=== PATIENT | male | born 1945 | race Caucasian/White ===

== ENCOUNTER 2017-04-04 06:09 | Emergency (ER) | payer OTHER ==
[2017-04-04 06:21] VITALS: BP 143/75; PULSE 75; TEMP 98.3; BMI 25.0
--- NOTE | 2017-04-04 06:45 | PDOC ---
History of Present Illness - General Chief Complaint: Urinary Problem Stated Complaint: URINARY PROBLEM Time Seen by Provider: 04/04/17 06:27 History Source: Patient - History of Present Illness Travel History: No Initial Comments: 04/04/17 06:39 71 year old male with urinary retention due to blocked phimosis. patient reports that usual urination patient has to milk the penis to release urine prior to arrival patient was unable to void. last void at 1 am. denies abdominal pain, fever, NVD. patient has a history of blocked Phimosis, diabetes mellitus, hypertension Past History - Past Medical History Allergies/Adverse Reactions: Allergies Allergy/AdvReac Type Severity Reaction Status Date / Time No Known Allergies Allergy Verified 04/04/17 06:18 Home Medications: Ambulatory Orders Metformin HCl [Glucophage -] 500 mg PO BID 04/04/17 Diabetes: Yes - Suicide/Smoking/Psychosocial Hx Smoking History: Never smoked Have you smoked in the past 12 months: No Information on smoking cessation initiated: No Hx Alcohol Use: No Drug/Substance Use Hx: No Review of Systems - Review of Systems Able to Perform ROS?: Yes Is the patient limited Cymro proficient: No Constitutional: No: Symptoms Reported, See HPI, Chills, Diaphoresis, Fever, Loss of Appetite, Malaise, Night Sweats, Weakness, Weight Stable, Unintentional Wgt. Loss, Unexplained wgt Loss, Other : Yes: Other (urinary distention) *Physical Exam - Vital Signs Last Vital Signs Temp Pulse Resp BP Pulse Ox 98.3 F 75 20 143/75 97 04/04/17 06:19 04/04/17 06:19 04/04/17 06:19 04/04/17 06:19 04/04/17 06:19 - Physical Exam General Appearance: Yes: Appropriately Dressed Gastrointestinal/Abdominal: positive: Normal Bowel Sounds, Soft, Other (no suprapubic tenderness). negative: Tender Male Genitalia: positive: other (+ phimosis) Integumentary: positive: Normal Color, Dry, Warm Neurologic: positive: Fully Oriented, Alert, Normal Mood/Affect Progress Note - Progress Note Progress Note: A: urinary retention secondary to phimosis P: smegma cleaned. patient able to urinate without difficulty. patient will be referred to urology Medical Decision Making - Medical Decision Making 04/04/17 07:00 UA disgarded. contaminated with smegma. patient with no urinary symptoms. will repeat test with pmd 04/04/17 07:01 *DC/Admit/Observation/Transfer Diagnosis at time of Disposition: Phimosis, Urinary retention - Discharge Dispostion Disposition: HOME - Referrals Referrals: Bautista Quintana MD [Staff Physician] - - Patient Instructions Printed Discharge Instructions: DI for Phimosis Additional Instructions: please follow up with urology as soon as possible.
--- NOTE | 2017-04-04 06:49 | PDOC ---
*Physical Exam - Vital Signs Last Vital Signs Temp Pulse Resp BP Pulse Ox 98.3 F 75 20 143/75 97 04/04/17 06:19 04/04/17 06:19 04/04/17 06:19 04/04/17 06:19 04/04/17 06:19 Medical Decision Making - Medical Decision Making 04/04/17 06:47 agree with care from [facility] Ramiro *DC/Admit/Observation/Transfer Diagnosis at time of Disposition: Phimosis, Urinary retention
[2017-04-04 06:59] LABS: URINE APPEARANCE SLCLOUDY; URINE BILIRUBIN NEGATIVE (NEGATIVE); URINE BLOOD 1+ (NEGATIVE); URINE COLOR YELLOW; URINE GLUCOSE (UA) 3+ (NEGATIVE); URINE KETONE TRACE (NEGATIVE); URINE NITRITE NEGATIVE (NEGATIVE); URINE PROTEIN NEGATIVE (NEGATIVE); URINE UROBILINOGEN NEGATIVE mg/dL (0.2-1.0)
[2017-04-04 07:07] LABS: URINE MUCUS RARE; URINE RBC 25 /hpf (0-3); URINE WBC 19 /hpf (3-5)
[2017-04-04 10:42] LABS: URINE LEUK ESTERASE 1+ (NEGATIVE)
== END 2017-04-04 06:59 | disposition home or self-care (01) ==
LOC: JER 06:09
DX: N47.1 Phimosis (principal); E11.9 Type 2 diabetes mellitus without complications; Z79.84 Long term (current) use of oral hypoglycemic drugs
CPT/HCPCS: 81003; 81015; 99282-25

== ENCOUNTER 2017-10-26 07:30 | Observation (INO) | payer OTHER ==
[2017-10-26 07:46] VITALS: BMI 25.7
--- NOTE | 2017-10-26 07:47 | PDOC ---
History of Present Illness - General Chief Complaint: Urinary Problem Stated Complaint: DIFFICULTY URINATING Time Seen by Provider: 10/26/17 07:47 - History of Present Illness Initial Comments: 10/26/17 07:49 The patient denies chest pain, shortness of breath, headache and dizziness. Denies fever, chills, nausea, vomit, diarrhea and constipation. Denies dysuria, frequency, urgency and hematuria. Allergies: Past History - Past Medical History Allergies/Adverse Reactions: Allergies Allergy/AdvReac Type Severity Reaction Status Date / Time No Known Allergies Allergy Verified 10/26/17 07:39 Home Medications: Ambulatory Orders metFORMIN HCL [Glucophage -] 500 mg PO BID 04/04/17 COPD: No Diabetes: Yes (TYPE 2) - Suicide/Smoking/Psychosocial Hx Smoking History: Former smoker Have you smoked in the past 12 months: No Information on smoking cessation initiated: No Hx Alcohol Use: No Drug/Substance Use Hx: No Review of Systems - Review of Systems Comments:: 10/26/17 07:49 GENERAL/CONSTITUTIONAL: No fever or chills. No weakness. HEAD, EYES, EARS, NOSE AND THROAT: No change in vision. No ear pain or discharge. No sore throat. CARDIOVASCULAR: No chest pain or shortness of breath RESPIRATORY: No cough, wheezing, or hemoptysis. GASTROINTESTINAL: No nausea, vomiting, diarrhea or constipation. GENITOURINARY: No dysuria, frequency, or change in urination. MUSCULOSKELETAL: No joint or muscle swelling or pain. No neck or back pain. SKIN: No rash NEUROLOGIC: No headache, vertigo, loss of consciousness, or change in strength/ sensation. ENDOCRINE: No increased thirst. No abnormal weight change HEMATOLOGIC/LYMPHATIC: No anemia, easy bleeding, or history of blood clots. ALLERGIC/IMMUNOLOGIC: No hives or skin allergy. *Physical Exam - Vital Signs Last Vital Signs Temp Pulse Resp BP Pulse Ox 98.5 F 107 H 17 122/80 95 10/26/17 07:39 10/26/17 07:39 10/26/17 07:39 10/26/17 07:39 10/26/17 07:39 - Physical Exam Comments: 10/26/17 07:49 GENERAL: Awake, alert, and fully oriented, in no acute distress HEAD: No signs of trauma, normocephalic, atraumatic EYES: PERRLA, EOMI, sclera anicteric, conjunctiva clear ENT: Auricles normal inspection, hearing grossly normal, nares patent, oropharynx clear without exudates. Moist mucosa NECK: Normal ROM, supple, no lymphadenopathy, JVD, or masses LUNGS: No distress, speaks full sentences, clear to auscultation bilaterally HEART: Regular rate and rhythm, normal S1 and S2, no murmurs, rubs or gallops, peripheral pulses normal and equal bilaterally. ABDOMEN: Soft, nontender, normoactive bowel sounds. No guarding, no rebound. No masses EXTREMITIES: Normal inspection, Normal range of motion, no edema. No clubbing or cyanosis. NEUROLOGICAL: Cranial nerves II through XII grossly intact. Normal speech, normal gait, no focal sensorimotor deficits SKIN: Warm, Dry, normal turgor, no rashes or lesions noted. *DC/Admit/Observation/Transfer - Referrals - Patient Instructions Additional Instructions: Please return to the emergency department with any new or worsening symptoms or concerns. Please follow up with your primary care physician within 72 hours. - Post Discharge Activity
--- NOTE | 2017-10-26 07:49 | PDOC ---
History of Present Illness - General Chief Complaint: Urinary Problem Stated Complaint: DIFFICULTY URINATING Time Seen by Provider: 10/26/17 07:47 - History of Present Illness Initial Comments: 10/26/17 07:48 72 yo M with h/o NIDDM who p/w with decreased urination. Patient reports decreased urination x 3 days ( dribbling) with inability to urinate this AM ( 0400). Also reports penile redness, swelling, and inability to retract foreskin x 3 days. Increased urinary frequency within past 2-3 days Q 1 hour vs. Q3 hours. Patient states that when he attempts urination, his penis "baloons up. "Endorses chronic dysuria, and intermittent suprpapubic pain. Does not catherize for urine. Scheduled Urology apt. next week ( 10/28/17). Tylenol this AM. Denies F/C, N/V, CP, SOB, diarrhea, constipation, weakness, lightheadedness, sensory changes. PMHx: (04/04/17) ED encounter for urinary retetnion 2/2 phimosis. Denies h/o prostate issues. ROS: As noted above SHx: Denies Etoh, Tobacco use, IVDA. Denies h/o STI's. Past History - Past Medical History Allergies/Adverse Reactions: Allergies Allergy/AdvReac Type Severity Reaction Status Date / Time No Known Allergies Allergy Verified 10/26/17 07:39 Home Medications: Ambulatory Orders Acarbose [Precose -] 50 mg PO TID 10/26/17 Glimepiride 4 mg PO DAILY 10/26/17 Metformin HCl [Metformin HCl ER] 1,000 mg PO BID 10/26/17 Pravastatin Sodium 20 mg PO DAILY 10/26/17 Valsartan/Hydrochlorothiazide [Valsartan-Hctz 80-12.5 mg Tab] 1 each PO DAILY Lactobacillus Acidophilus [Bacid -] 1 each PO BID #10 capsule 10/27/17 Levofloxacin [Levaquin] 500 mg PO DAILY #5 tablet 10/27/17 Oxycodone HCl 5 mg PO Q4H PRN #20 tablet MDD 4 10/27/17 COPD: No Diabetes: Yes (TYPE 2) - Suicide/Smoking/Psychosocial Hx Smoking History: Former smoker Have you smoked in the past 12 months: No Information on smoking cessation initiated: No Hx Alcohol Use: No Drug/Substance Use Hx: No Review of Systems - Review of Systems Comments:: 10/26/17 07:48 GENERAL/CONSTITUTIONAL: No fever or chills. No weakness. HEAD, EYES, EARS, NOSE AND THROAT: No change in vision. No ear pain or discharge. No sore throat. CARDIOVASCULAR: No chest pain or shortness of breath RESPIRATORY: No cough, wheezing, or hemoptysis. GASTROINTESTINAL: No nausea, vomiting, diarrhea or constipation. GENITOURINARY:+ dysuria, frequency, and change in urination. MUSCULOSKELETAL: No joint or muscle swelling or pain. No neck or back pain. SKIN: No rash NEUROLOGIC: No headache, vertigo, loss of consciousness, or change in strength/ sensation. ENDOCRINE: No increased thirst. No abnormal weight change HEMATOLOGIC/LYMPHATIC: No anemia, easy bleeding, or history of blood clots. ALLERGIC/IMMUNOLOGIC: No hives or skin allergy. *Physical Exam - Vital Signs Last Vital Signs Temp Pulse Resp BP Pulse Ox 98.5 F 107 H 17 122/80 95 10/26/17 07:39 10/26/17 07:39 10/26/17 07:39 10/26/17 07:39 10/26/17 07:39 - Physical Exam Comments: 10/26/17 07:48 GENERAL: Awake, alert, and fully oriented, in no acute distress HEAD: No signs of trauma, normocephalic, atraumatic EYES: PERRLA, EOMI, sclera anicteric, conjunctiva clear ENT: Hearing grossly normal, nares patent, oropharynx clear without exudates. Moist mucosa NECK: Normal ROM, supple, no lymphadenopathy, JVD, or masses LUNGS: No distress, speaks full sentences, clear to auscultation bilaterally HEART: Regular rate and rhythm, normal S1 and S2, no murmurs, rubs or gallops, peripheral pulses normal and equal bilaterally. ABDOMEN: Soft, +suprpapubic ttp, normoactive bowel sounds. No guarding, no rebound. No masses. Neg CVA ttp. : Mid-distal penile swelling and erythema. Unable to retract foreskin, Glans penis and urethral meatus non visualized. Absent scortal swelling, ttp, or overlying skin changes. Absent penile discharge, lesions, or bleeding. Neg inguinal lymphadenopathy. EXTREMITIES : Normal inspection, Normal range of motion, no edema. No clubbing or cyanosis. SKIN: Warm, Dry, normal turgor, no rashes or lesions noted ED Treatment Course - LABORATORY CBC & Chemistry Diagram: 10/27/17 07:40 10/27/17 07:40 Medical Decision Making - Medical Decision Making 10/26/17 08:07 72 yo M with h/o NIDDM who p/w with decreased urination. A&Ox3, VSS. Physical exam notable for inability to retract foreskin,and mid-distal penile swelling, with suprpapbic ttp. Will obtain urine to r/o cystitis. Physical exam findings and history likely 2/2 phimosis. Will obtain sonographic eval to r/o obstruction/hydronephrosis. No clinical s/s of pyelonephritis. ED Course: UA, UCx, Pacheco, Bladder/Renal U/S 10/26/17 08:35 Morphine 4 mg IV, Zofran 4 mg Unsuccessful attempt to retract foreskin over glans penis. Dr. Vaughn Posey answering service contacted. 10/26/17 09:50 Patient seen and evaluated by Dr. Vaughn posey in ED. Patient to receive suprpapubic catheter, following multiple failed attempts at pacheco placement. Patient signed out to Dr. Goodrich for admission to medicine Dr. Duggan. CBC, CMP, T&S, PT/INR, aPTT Bedside U/S with 2.4 L urine 10/26/17 12:15 BUN: 23 Cr: 1.1 WBC: 13.1 *DC/Admit/Observation/Transfer Diagnosis at time of Disposition: Phimosis, Urinary retention - Discharge Dispostion Disposition: HOME Condition at time of disposition: Stable Decision to Admit order: Yes - Prescriptions - Referrals - Patient Instructions - Post Discharge Activity
[2017-10-26] MEDS ORDERED: morphine CARPU-JECT 4 MG/1 ML DISP.SYRIN IVPUSH ONE (08:33)
[2017-10-26] MEDS ORDERED: ONDANSETRON 4 MG/2 ML VIAL IVPB ONE (08:34)
--- NOTE | 2017-10-26 08:50 | PDOC ---
Attending Attestation - Resident Resident Name: Yadiel Cox - ED Attending Attestation I have performed the following: I have examined & evaluated the patient, The case was reviewed & discussed with the resident, I agree w/resident's findings & plan, Exceptions are as noted - HPI HPI: 10/26/17 10:18 The patient is a 72 year old male with past medical history of diabetes who presents to the ED with an inability to urinate since 4 am today. He states for three days he has been having difficulty urinating, producing only dribbles of urine. He reports associated redness and swelling on the shaft of his penis for the past three days as well. The patient also endorses chronic dysuria and superpubic pain. He reports similar episode March 2017 where he had urinary retention. He denies any fevers, chills, nausea, vomiting, diarrhea, cough, SOB , or any other urinary complaints. The patient is scheduled to see his urologist in 2 days. - Physicial Exam PE: 10/26/17 11:27 agree with resident exam - Medical Decision Making 10/26/17 08:40 72yo M hx NIDDM, phimosis presents to the ED with difficulty urinating 2/2 phimosis. Vitals remarkable for tachycardia. On exam, distal body of penis with edema, tenderness and inability to retract foreskin 2/2 edema, despite multiple attempts to retract with lubricant and sterile swab. We are unable to place pacheco. Case discussed with Dr. Branch, who states he is on his way to the ED. 10/26/17 09:00 Dr. Vaughn Carlin at bedside attempting to retract foreskin and pass catheter. Ring block done with 1% lidocaine. Pt tolerating well 10/26/17 10:[address] Vaughn Carlin to pass cath unsuccessful. Decision made to place suprapubic cath, pt consented and understand procedure. Pt admitted at this time as he will need to go to the OR for retraction of foreskin. IV levaquin given. 10/26/17 10:39 Bladder scan with 600cc of urine 10/26/17 11:27 Suprapubic catheter placed at the bedside by Dr. Dueñas w/o complications, draining clear urine. Pt will be NPO after MN for dorsal slit, possible urthroplasty tomorrow AM in OR. Pt feels better with draining urine.
[2017-10-26] MEDS ORDERED: LIDOCAINE HCL 1%, 10 MG/ML (20ML VIAL) ONE ×2 (08:57→11:13)
[2017-10-26] MEDS ORDERED: morphine SULFATE 4 MG/ML VIAL ONE (09:49)
[2017-10-26] MEDS ORDERED: ONDANSETRON 4 MG/2 ML VIAL ONE (09:49)
[2017-10-26 10:08] LABS: BASO % 0.3 % (0-2.0); EOS % 0.6 % (0-4.5); HEMATOCRIT 42.5 % (35.4-49); HEMOGLOBIN 14.8 GM/dL (11.7-16.9); LYMPH % 12.4 % (8-40); MCH 29.1 pg (25.7-33.7); MCHC 34.9 g/dl (32.0-35.9); MEAN CELL VOLUME 83.5 fl (80-96); MEAN PLT VOLUME 8.3 fl (7.5-11.1); MONO % 5.8 % (3.8-10.2); NEUT % 80.9 % (42.8-82.8); PLATELET COUNT 232 K/MM3 (134-434); RBC 5.09 M/mm3 (4.00-5.60); RDW 13.3 % (11.9-15.9); WHITE BLOOD COUNT 13.1 K/mm3 (4.0-10.0)
[2017-10-26 10:19] LABS: INR 1.05 (0.82-1.09); PROTHROMBIN TIME (PATIENT) 11.9 SEC (9.7-13.0)
[2017-10-26 10:32] LABS: ALBUMIN 4.3 g/dl (3.4-5.0); ALK PHOS 94 U/L (45-117); ANION GAP 10 (8-16); BILIRUBIN,TOTAL 0.7 mg/dL (0.2-1.0); BLOOD UREA NITROGEN 23 mg/dL (7-18); CALCIUM 9.8 mg/dL (8.5-10.1); CHLORIDE 99 mmol/L (98-107); CO2 26 mmol/L (21-32); CREATININE 1.1 mg/dL (0.7-1.3); GLUCOSE,RANDOM 290 mg/dL (74-106); POTASSIUM 4.4 mmol/L (3.5-5.1); SGOT/AST 24 U/L (15-37); SGPT/ALT 39 U/L (12-78); SODIUM 135 mmol/L (136-145); TOT PROT 8.3 g/dl (6.4-8.2)
[2017-10-26] MEDS ORDERED: morphine CARPU-JECT 2 MG/1 ML DISP.SYRIN IVPUSH PRN (10:46)
--- NOTE | 2017-10-26 11:23 | PN ---
Teaching Attending Note Name of Resident: Brisa Goodrich ATTENDING PHYSICIAN STATEMENT I saw and evaluated the patient. I reviewed the resident's note and discussed the case with the resident. I agree with the resident's findings and plan as documented. SUBJECTIVE: This is a 79 year old man with a history of type 2 DM, HTN, hyperlipidemia, phimosis who comes to the ER complaining of difficulty urinating. In March 2017, he was seen in the ED for urinary retention secondary to a phimosis. He was treated and able to urinate. He did not follow up with a urologist. He again developed difficulty urinating 2-3 weeks ago. He developed painful swelling and redness of the penis, suprapubic pain and distention. OBJECTIVE: Vital Signs Period Temp Pulse Resp BP Sys/Quintanilla Pulse Ox Last 24 Hr 98.5 F 107 17 122/80 95 HEART: S1S2, tachycardic LUNGS: Clear ABDOMEN: Soft, normal BS, distended tender urinary bladder GENITALIA: Phimosis with erythema EXTREMITIES: No edema Laboratory Tests 10/26/17 10/26/17 10/26/17 09:49 09:52 09:57 WBC RBC Hgb Hct MCV MCH MCHC RDW Plt Count MPV Neutrophils % Lymphocytes % Monocytes % Eosinophils % Basophils % PT with INR INR PTT (Actin FS) 37.4 H Sodium Potassium Chloride Carbon Dioxide Anion Gap BUN Creatinine Creat Clearance w eGFR Random Glucose Calcium Total Bilirubin AST ALT Alkaline Phosphatase Creatine Kinase 55 Troponin I < 0.02 Total Protein Albumin Blood Type O POSITIVE Antibody Screen Negative 10/26/17 10/26/17 10/26/17 09:57 09:57 09:57 WBC 13.1 H RBC 5.09 Hgb 14.8 Hct 42.5 MCV 83.5 MCH 29.1 MCHC 34.9 RDW 13.3 Plt Count 232 MPV 8.3 Neutrophils % 80.9 Lymphocytes % 12.4 Monocytes % 5.8 Eosinophils % 0.6 Basophils % 0.3 PT with INR 11.90 INR 1.05 PTT (Actin FS) Sodium 135 L Potassium 4.4 Chloride 99 Carbon Dioxide 26 Anion Gap 10 BUN 23 H Creatinine 1.1 Creat Clearance w eGFR > 60 Random Glucose 290 H Calcium 9.8 Total Bilirubin 0.7 AST 24 ALT 39 Alkaline Phosphatase 94 Creatine Kinase Troponin I Total Protein 8.3 H Albumin 4.3 Blood Type Antibody Screen Home Medications Medication Instructions Recorded metFORMIN HCL [Glucophage -] 500 mg PO BID 04/04/17 ASSESSMENT AND PLAN: This is a 79 year old man with a history of type 2 DM, HTN, hyperlipidemia, phimosis who presented to the ED with difficulty urinating. 1. Urinary retention secondary to phimosis - Urology consult appreciated - Castellon unable to be inserted, will place suprapubic tube 2. HTN - Continue Diovan, HCTZ 3. Hyperlipidemia - Continue Pravachol 4. Type 2 DM - Hold metformin - Fingersticks with Novolog sliding scale
--- NOTE | 2017-10-26 11:36 | CONSULT ---
Consult - text type - Consultation Consultation Note: cc: acute urinary retention/phimosis hpi: patient with severe difficulty voiding secondary to phimosis with balanoposthitis. patient in urinary retention with bladder volume of greater than 500cc pe vss/afeb abd-palplable bladder to umbilicus genitalia- sever phimosis with erthema with urine balllooning phimosis multiple attempts at pacheco placement and urethral dilation perfomred. penille lidocaine block given suproubic tube placed emergently due to inablility to void, risk of bladder rupture and risk of renal failure spent 90 minutes with patient prior to suprapubic tube placement imp urinary retention phimosis urethral stricture plan levauin pre-op for dorsal slit and possible urethroplasty
[2017-10-26 12:09] LABS: URINE APPEARANCE CLEAR; URINE BILIRUBIN NEGATIVE (<2.0 mg/dL); URINE COLOR YELLOW; URINE GLUCOSE (UA) 3+ (NEGATIVE); URINE KETONE 1+ (NEGATIVE); URINE LEUK ESTERASE NEGATIVE (NEGATIVE); URINE NITRITE NEGATIVE (NEGATIVE); URINE PROTEIN NEGATIVE (NEGATIVE)
[2017-10-26 12:16] LABS: URINE BACTERIA RARE /hpf (NONE SEEN); URINE MUCUS RARE; YEAST FEW
--- NOTE | 2017-10-26 12:57 | HP ---
CHIEF COMPLAINT: Urinary Retention PCP: Not on Staff HISTORY OF PRESENT ILLNESS: Patient is a 79 year old male with a PMHx of NIDDMII, HTN, HLD, and Phimosis who presented for urinary retention that worsened in the last 2 weeks. According to patients daughter, patient was in the ED for phimosis back in March and they were able to relieve the obstruction due to the phimosis and made an appointment with a urologist for follow up. However, patient started feeling well and cancelled his appointment with the urologist. Patient in September then started experiencing urinary retention with difficulty retracting the foreskin of the penis. He reports that he would try to retract the foreskin and would be able to release some urine into a cup. However, most of the time when he attempts to urinate, the distal end of his penis "balloons" up and is unable to urinate. He called to make an appointment with the urologist last month but the earliest appointment was around November 04. Patient started experiencing swelling, redness and pain around the penis associated with dysuria and suprapubic tenderness and distention. Patient states this morning he was unable to void at all and experienced severe pain, which prompted this hospital visit. Otherwise, patient denies any fever, chills, nausea, vomiting, chest pain, shortness of breath, headache, acute vision changes. ER course was notable for: (1) Multiple failed attempts to insert pacheco (2) Urology placed suprapubic catheter at bedside (3) Recent Travel: Denies PAST MEDICAL HISTORY: NIDMMII, HTN, HLD PAST SURGICAL HISTORY: Denies Social History: Smoking: Denies Alcohol: Denies Drugs: Denies Family History: Non-contributory Allergies: No Known Allergies Allergy (Verified 10/26/17 07:39) HOME MEDICATIONS: Home Medications Home Medications Medication Instructions Recorded Acarbose [Precose -] 50 mg PO TID 10/26/17 Glimepiride 4 mg PO DAILY 10/26/17 Metformin HCl [Metformin HCl ER] 1,000 mg PO BID 10/26/17 Pravastatin Sodium 20 mg PO DAILY 10/26/17 Valsartan/Hydrochlorothiazide 1 each PO DAILY 10/26/17 [Valsartan-Hctz 80-12.5 mg Tab] REVIEW OF SYSTEMS CONSTITUTIONAL: Absent: fever, chills, diaphoresis, generalized weakness, malaise, loss of appetite, weight change HEENT: Absent: rhinorrhea, nasal congestion, throat pain, throat swelling, difficulty swallowing, mouth swelling, ear pain, eye pain, visual changes CARDIOVASCULAR: Absent: chest pain, syncope, palpitations, irregular heart rate, lightheadedness , peripheral edema RESPIRATORY: Absent: cough, shortness of breath, dyspnea with exertion, orthopnea, wheezing, stridor, hemoptysis GASTROINTESTINAL: abdominal distension Absent: abdominal pain, nausea, vomiting, diarrhea, constipation, melena, hematochezia GENITOURINARY: Urinary retention, Phimosis Absent: dysuria, frequency, urgency, hesitancy, hematuria, flank pain, genital pain MUSCULOSKELETAL: Absent: myalgia, arthralgia, joint swelling, back pain, neck pain SKIN: Absent: rash, itching, pallor HEMATOLOGIC/IMMUNOLOGIC: Absent: easy bleeding, easy bruising, lymphadenopathy, frequent infections ENDOCRINE: Absent: unexplained weight gain, unexplained weight loss, heat intolerance, cold intolerance NEUROLOGIC: Absent: headache, focal weakness or paresthesias, dizziness, unsteady gait, seizure, mental status changes, bladder or bowel incontinence PSYCHIATRIC: Absent: anxiety, depression, suicidal or homicidal ideation, hallucinations. PHYSICAL EXAMINATION Vital Signs - 24 hr 10/26/17 10/26/17 07:39 12:11 Temperature 98.5 F Pulse Rate 107 H Pulse Rate [ 79 Left] Respiratory 17 18 Rate Blood Pressure 122/80 Blood Pressure 112/68 [Arm] O2 Sat by Pulse 95 99 Oximetry (%) GENERAL: Awake, alert, and fully oriented, in moderate painful distress. HEAD: Normal with no signs of trauma. EYES: Pupils equal, round and reactive to light, extraocular movements intact, sclera anicteric, conjunctiva clear. No lid lag. EARS, NOSE, THROAT: Oropharynx clear without exudates. Moist mucous membranes. NECK: Normal range of motion, supple without lymphadenopathy, JVD, or masses. LUNGS: Breath sounds equal, clear to auscultation bilaterally. No wheezes, and no crackles. No accessory muscle use. HEART: Regular rate and rhythm, normal S1 and S2 without murmur, rub or gallop. ABDOMEN: Soft, tenderness upon palpation of suprapubic area with distention. Normoactive bowel sounds. : Distal penile swelling and erythema with severe phimosis. Unable to retract foreskin to visualize urethral meatus and glans penis. MUSCULOSKELETAL: No CVA tenderness. UPPER EXTREMITIES: No peripheral edema. LOWER EXTREMITIES: No peripheral edema. NEUROLOGICAL: Cranial nerves II-XII intact. Normal speech. Motor strength 5/5 bilaterally with sensory intact. PSYCHIATRIC: Cooperative. Good eye contact. Appropriate mood and affect. SKIN: Warm, dry, normal turgor, no rashes or lesions noted, normal capillary refill. Laboratory Results - last 24 hr CBC, BMP 10/26/17 09:57 10/26/17 09:57 10/26/17 10/26/17 10/26/17 08:10 09:57 09:57 AST 24 ALT 39 Alkaline Phosphatase 94 Troponin I < 0.02 Urine Glucose (UA) 3+ H Urine Ketones 1+ H Urine Blood 1+ H Urine WBC (Auto) 1 Urine RBC (Auto) 48 Urine Bacteria Rare ASSESSMENT/PLAN: Patient is a 72 year old male who presented for urinary retention and was found to have severe phimosis with multiple failed attempts at pacheco placement. Patient admitted for further monitoring and management. Urinary Retention Secondary to Severe Phimosis/Urethral Stricture -Multiple failed attempts to place pacheco and urethral dilation with penile lidocaine given. -Emergent Suprapubic catheter placed at bedside by urologist. -Plan for dorsal slit and possible urethroplasty tomorrow -NPO after midnight -IV Fluids when NPO -Prophylactic IV antibiotic coverage with Levaquin 750mg daily, as per urology -Urology consult placed NIDMMII -ISS -BGM HTN -Continue home medication Valsartan-HCTZ 80/12.5 HLD -Continue home medication Pravastatin 20mg HS F/E/N -IV LR @100mls/hr -Electrolytes wnl -NPO after midnight Prophylaxis -Low risk. SCD's for DVT -No GI required Disposition -Full code -OR tomorrow for dorsal slit and possible urethroplasty Brisa Goodrich MD PGY-2 Visit type - Emergency Visit Emergency Visit: Yes ED Registration Date: 10/26/17 Care time: The patient presented to the Emergency Department on the above date and was hospitalized for further evaluation of their emergent condition. - New Patient This patient is new to me today: Yes Date on this admission: 10/26/17 - Critical Care Critical Care patient: No Hospitalist Screening - Colonoscopy Questionnaire Colonoscopy Questionnaire: Colonoscopy Questionnaire - Patient: 50 - 75 years old and never had a screening colonoscopy: No History of colon or rectal polyps, or CA: No History of IBD, Crohn's disease or UC: No History of abdominal radiation therapy as a child: No - Relative: 1 with colon or rectal CA, or polyps at age 60 or younger: No Colon or rectal CA diagnosed at age 45 or younger: No Multiple relatives with colon or rectal CA: No - Outcome: Screening Result: Negative Screen
[2017-10-26] MEDS: LACTATED RINGERS SOLUTION 1,000 ML IV SCH ×2 (13:15→23:53)
[2017-10-26] MEDS: HYDROCHLOROTHIAZIDE 12.5 MG CAPSULE (FP) PO SCH (14:35)
[2017-10-26] MEDS: INSULIN SLIDING SCALE (NOVOLOG) 1 VIAL SQ SCH ×3 (14:36→21:42)
[2017-10-26] MEDS ORDERED: PT OWN MED DRAWER 7, Y5N ONE (21:39)
[2017-10-26] MEDS ORDERED: INSULIN (NOVOLOG) ASPART 100 UNITS/ML 10ML VIAL ONE (21:40)
--- NOTE | 2017-10-26 21:44 | EKG ---
Test Reason : Blood Pressure : / mmHG Vent. Rate : 087 BPM Atrial Rate : 087 BPM P-R Int : 154 ms QRS Dur : 068 ms QT Int : 356 ms P-R-T Axes : 058 -49 047 degrees QTc Int : 428 ms NORMAL SINUS RHYTHM LEFT ANTERIOR FASCICULAR BLOCK ABNORMAL ECG NO PREVIOUS ECGS AVAILABLE Confirmed by AGUSTÍN CARR MD ([id number]) on 10/26/2017 9:44:38 PM Referred By: Confirmed By:AGUSTÍN CARR MD
[2017-10-26] MEDS ORDERED: ATORVASTATIN CA 10 MG TABLET (FP) PO SCH (22:00)
[2017-10-27] MEDS: INSULIN SLIDING SCALE (NOVOLOG) 1 VIAL SQ SCH ×2 (07:07→12:10)
[2017-10-27] MEDS ORDERED: INSULIN (NOVOLOG) ASPART 100 UNITS/ML 10ML VIAL ONE (07:09)
[2017-10-27 08:19] LABS: HEMATOCRIT 39.3 % (35.4-49); HEMOGLOBIN 13.6 GM/dL (11.7-16.9); MCH 29.1 pg (25.7-33.7); MCHC 34.7 g/dl (32.0-35.9); MEAN CELL VOLUME 84.1 fl (80-96); MEAN PLT VOLUME 8.4 fl (7.5-11.1); PLATELET COUNT 199 K/MM3 (134-434); RBC 4.68 M/mm3 (4.00-5.60); RDW 13.2 % (11.9-15.9); WHITE BLOOD COUNT 12.8 K/mm3 (4.0-10.0)
[2017-10-27 08:41] LABS: CHLORIDE 96 mmol/L (98-107); POTASSIUM 4.8 mmol/L (3.5-5.1); SODIUM 133 mmol/L (136-145)
[2017-10-27 08:47] LABS: ANION GAP 9 (8-16); BLOOD UREA NITROGEN 17 mg/dL (7-18); CALCIUM 8.9 mg/dL (8.5-10.1); CO2 28 mmol/L (21-32); CREATININE 1.1 mg/dL (0.7-1.3); GLUCOSE,RANDOM 250 mg/dL (74-106)
[2017-10-27] MEDS ORDERED: PATIENT'S OWN MEDICATION (NON-FORMULARY) (Valsartan/Hydrochlorothiazide [Valsartan-Hctz 80 PO SCH (10:00)
[2017-10-27] MEDS: HYDROCHLOROTHIAZIDE 12.5 MG CAPSULE (FP) PO SCH (10:31)
[2017-10-27] MEDS: LACTATED RINGERS SOLUTION 1,000 ML IV SCH (12:10)
--- NOTE | 2017-10-27 12:38 | PN ---
Physical Exam: SUBJECTIVE: Patient seen and examined OBJECTIVE: Vital Signs Period Temp Pulse Resp BP Sys/Quintanilla Pulse Ox Last 24 Hr 98.3 F-99.4 F 87-100 18-20 123-140/70-82 99-99 GENERAL: The patient is awake, alert, and fully oriented, in no acute distress. HEAD: Normal with no signs of trauma. EYES: PERRL, extraocular movements intact, sclera anicteric, conjunctiva clear. No ptosis. ENT: Ears normal, nares patent, oropharynx clear without exudates, moist mucous membranes. NECK: Trachea midline, full range of motion, supple. LUNGS: Breath sounds equal, clear to auscultation bilaterally, no wheezes, no crackles, no accessory muscle use. HEART: Regular rate and rhythm, S1, S2 without murmur, rub or gallop. ABDOMEN: Soft, nontender, nondistended, normoactive bowel sounds, no guarding, no rebound, no hepatosplenomegaly, no masses. EXTREMITIES: 2+ pulses, warm, well-perfused, no edema. NEUROLOGICAL: Cranial nerves II through XII grossly intact. Normal speech, gait not observed. PSYCH: Normal mood, normal affect. SKIN: Warm, dry, normal turgor, no rashes or lesions noted Laboratory Results - last 24 hr 10/26/17 10/26/17 10/26/17 14:02 16:44 21:25 WBC RBC Hgb Hct MCV MCH MCHC RDW Plt Count MPV Sodium Potassium Chloride Carbon Dioxide Anion Gap BUN Creatinine POC Glucometer 352 316 257 Random Glucose Calcium 10/27/17 10/27/17 10/27/17 06:36 07:40 07:40 WBC 12.8 H RBC 4.68 Hgb 13.6 Hct 39.3 MCV 84.1 MCH 29.1 MCHC 34.7 RDW 13.2 Plt Count 199 MPV 8.4 Sodium 133 L Potassium 4.8 Chloride 96 L Carbon Dioxide 28 Anion Gap 9 BUN 17 D Creatinine 1.1 POC Glucometer 234 Random Glucose 250 H Calcium 8.9 Active Medications Generic Name Dose Route Start Last Admin Trade Name Freq PRN Reason Stop Dose Admin Atorvastatin Calcium 10 mg 10/26/17 22:00 10/26/17 21:42 Lipitor - PO 10 mg HS FRANNY Administration Fentanyl 50 mcg 10/27/17 11:41 Sublimaze Injection - IVPUSH 10/27/17 23:59 [id number] PRN PAIN-PACU ORDER X 4 DOSES ONLY Hydrochlorothiazide 12.5 mg 10/26/17 14:00 10/27/17 10:31 Hctz - PO Not Given DAILY [facility] Lactated Ringer's 1,000 mls @ 100 mls/hr 10/26/17 11:00 10/27/17 12:10 Lactated Ringers Solution IV Not Given ASDIR [facility] Levofloxacin 750 mg in 150 mls @ 150 mls/hr 10/27/17 10:00 10/27/17 09:54 Levaquin 750 Mg Premixed Ivpb - IVPB 150 mls/hr DAILY [facility] Administration Protocol Insulin Aspart 1 vial 10/26/17 11:00 10/27/17 12:10 Novolog Vial Sliding Scale - SQ Not Given ACHS [facility] Protocol Morphine Sulfate 2 mg 10/26/17 10:46 Morphine Injection - IVPUSH Q4H PRN PAIN LEVEL 1 - 3 Valsartan 80 mg 10/27/19 14:00 Diovan - PO DAILY [facility] ASSESSMENT/PLAN:
[2017-10-27] MEDS ORDERED: DESFLURANE GAS 240 ML BOTTLE IH ONE (13:25)
--- NOTE | 2017-10-27 14:26 | OP ---
Operative Note - Note: Operative Date: 10/27/17 Pre-Operative Diagnosis: phimosis/distal urethral stricture/urinary retention Operation: distal urethroplasty/dorsal slit/removal of suprapubic tube Findings: severe phimosis with adhesions to meatus with distal stricture Post-Operative Diagnosis: Same as Pre-op Surgeon: Adrian Branch Anesthesia: General Specimens Removed: distal urethra/glans Drains & Tubes with Location: 18 portuguese pacheco
[2017-10-27] MEDS ORDERED: morphine SULFATE 4 MG/ML VIAL IVPUSH PRN (15:34)
[2017-10-27] MEDS ORDERED: HYDROCHLOROTHIAZIDE 12.5 MG CAPSULE (FP) PO SCH (15:45)
[2017-10-27] MEDS ORDERED: VALSARTAN 80 MG TABLET (UD) PO SCH (15:45)
--- NOTE | 2017-10-27 16:22 | MSN ---
Progress Note (short form) - Note Progress Note: SUBJECTIVE: Mr. Green is a 72 year old man with a hx of phimosis, HTN, HLD, and diabetes mellitus who presented to the ED with 3 x days of urinary retention , several hours of complete inability to void, and suprapubic tenderness and distention. In the ED multiple attempts at Castellon catheter insertion failed due to severe phimosis and possible urethral stricture. A suprapubic catheter was placed at bedside and drained clear yellow urine. In the ED, vital signs were stable. Patient received Levaquin 750 mg IV. Patient seen and examined at bedside this morning. Overnight, no acute events. Vital signs stable. Patient NPO for OR with Dr. Arielle Lorenzo in the AM. Suprapubic catheter draining dark/pinkish urine. Patient denies complaints of pain but does note very small amount of urine leaking from his urethral meatus. He denies fevers/chills, headache, chest pain, shortness of breath, palpitations, nausea/vomiting, abdominal/back pain, or lower extremity swelling. OBJECTIVE: Vital Signs Period Temp Pulse Resp BP Sys/Quintanilla Pulse Ox Last 24 Hr 98 F-99.4 F 68-103 16-20 123-155/69-91 97-99 GENERAL: Elderly male lying in bed with suprapubic catheter in place draining dark urine in no acute distress. Awake, alert, and orientated. HEAD: Normal without evidence of trauma. EYES: Sclera anicteric, conjuctiva clear. Extraoccular muscles intact. Pupils equal round and reactive. MOUTH: Poor dentition. No lesions or plaques. PHARYNX: No tonsilar exudates. Uvula/tongue midline. NECK: No JVD. No lymphadenopathy. Trachea midline. HEART: Regular at 95 bpm. + S1/S2. No murmurs, rubs, or gallops. PMI non- displaced. LUNGS: Clear to auscultation bilaterally. Breath sounds equal. No wheezes or crackles. ABDOMEN: Normoactive bowel sounds. Suprapubic dull to percussion. Suprapubic catheter in place without surrounding erythema or edema. Mild suprapubic tenderness. No rebound or guarding. GENITALIA: Erythematous and edematous penile shaft. Unable to retract foreskin, glans penis and urethral meatus not visualized. Small amount of clear discharge. No scrotal swelling. No inguinal lymphadenopathy. EXTREMITIES: No edema. 2 + DP/PT pulses. NEURO: Cranial nerves II-XII grossly intact. Normal speech. Gait not observed. Laboratory Results - last 24 hr 10/26/17 10/26/17 10/27/17 16:44 21:25 06:36 WBC RBC Hgb Hct MCV MCH MCHC RDW Plt Count MPV Sodium Potassium Chloride Carbon Dioxide Anion Gap BUN Creatinine POC Glucometer 316 257 234 Random Glucose Calcium 10/27/17 10/27/17 07:40 07:40 WBC 12.8 H RBC 4.68 Hgb 13.6 Hct 39.3 MCV 84.1 MCH 29.1 MCHC 34.7 RDW 13.2 Plt Count 199 MPV 8.4 Sodium 133 L Potassium 4.8 Chloride 96 L Carbon Dioxide 28 Anion Gap 9 BUN 17 D Creatinine 1.1 POC Glucometer Random Glucose 250 H Calcium 8.9 UA: 3+ glucose, 1 + ketones, 1 + blood Current Medications Generic Name Dose Route Start Last Admin Trade Name Freq PRN Reason Stop Dose Admin Hydrochlorothiazide 12.5 mg 10/27/17 15:45 Hctz - PO DAILY [facility] Levofloxacin 750 mg in 150 mls @ 150 mls/hr 10/28/17 10:00 Levaquin 750 Mg Premixed Ivpb - IVPB DAILY [facility] Protocol Insulin Aspart 1 vial 10/27/17 16:30 Novolog Vial Sliding Scale - SQ ACHS [facility] Protocol Morphine Sulfate 2 mg 10/27/17 15:34 Morphine Sulfate IVPUSH Q4H PRN PAIN LEVEL 1 - 3 Valsartan 80 mg 10/27/17 15:45 Diovan - PO DAILY [facility] IMAGING: Renal/bladder U/S: No evidence of hydronephrosis. Right hepatic lobe with diffuse fatty infiltration. ASSESSMENT/PLAN: 72 year old man with a hx of phimosis, HTN, HLD, and diabetes mellitus who presented to the ED with 3 x days of urinary retention and several hours of complete inability to void and was found to have severe phimosis with distal urethral stricture. #Acute urinary retention 2/2 to phimosis with balanoposthitis and possible urethral stricture -Patient is scheduled in the OR with Dr. Branch for dorsal slit and urtheroplasty and suprapubic catheter removal -Suprapubic catheter currently in place and draining urine -Levaquin 750 mg IV QD (Day 2)-follow urology recommendations on prophylactic antibiotics #Diabetes Mellatus-managed at home on metformin -Hold metformin -BGM QAC/HS -Insulin sliding scale -Consider need for adding basal insulin as blood glucose elevated around 290- 300 pre-meals and in AM -Order HbA1c #Hyponatremia-Sodium 133 -When corrected for blood glucose concentration sodium is within normal limits (Na+ 138) -Continue correct IV lactated ringers at 100 cc/hr while NPO #Leukocytosis-Improving -WBC 13.1 at admission; currently 12.8 -Patient is afebrile and UA was negative for leukocyte esterase #HTN -Continue home medication; Valsartan 80 mg and HCTZ 12.5 mg #HLD -Continue home pravastatin 20 mg QHS #F/E/N -IV lactated ringers at 100 cc/hr while NPO #DVT prophylaxis -SCDs
[2017-10-27] MEDS ORDERED: INSULIN SLIDING SCALE (NOVOLOG) 1 VIAL SQ SCH (16:30)
[2017-10-27 17:06] VITALS: BP 132/69; PULSE 70; TEMP 97.5
--- NOTE | 2017-10-27 17:41 | DS ---
Physical Exam: Discussed with , patient can go home with oral Levquin 5 more days, received 2 days here, will prescribe Bacid 2x per day and give her oxycodone for pain since had a surgery today . Vital Signs Temperature 97.5 F L 10/27/17 17:05 Pulse Rate 70 10/27/17 17:05 Respiratory Rate 19 10/27/17 18:00 Blood Pressure 132/69 10/27/17 17:05 O2 Sat by Pulse Oximetry (%) 99 10/27/17 18:00 CBCD WBC 12.8 K/mm3 (4.0-10.0) H 10/27/17 07:40 RBC 4.68 M/mm3 (4.00-5.60) 10/27/17 07:40 Hgb 13.6 GM/dL (11.7-16.9) 10/27/17 07:40 Hct 39.3 % (35.4-49) 10/27/17 07:40 MCV 84.1 fl (80-96) 10/27/17 07:40 MCHC 34.7 g/dl (32.0-35.9) 10/27/17 07:40 RDW 13.2 % (11.9-15.9) 10/27/17 07:40 Plt Count 199 K/MM3 (134-434) 10/27/17 07:40 MPV 8.4 fl (7.5-11.1) 10/27/17 07:40 CMP Sodium 133 mmol/L (136-145) L 10/27/17 07:40 Potassium 4.8 mmol/L (3.5-5.1) 10/27/17 07:40 Chloride 96 mmol/L (98-107) L 10/27/17 07:40 Carbon Dioxide 28 mmol/L (21-32) 10/27/17 07:40 Anion Gap 9 (8-16) 10/27/17 07:40 BUN 17 mg/dL (7-18) D 10/27/17 07:40 Creatinine 1.1 mg/dL (0.7-1.3) 10/27/17 07:40 Creat Clearance w eGFR > 60 (>60) 10/26/17 09:57 Random Glucose 250 mg/dL (74-106) H 05/14/18 07:40 Calcium 8.9 mg/dL (8.5-10.1) 10/27/17 07:40 Total Bilirubin 0.7 mg/dL (0.2-1.0) 10/26/17 09:57 AST 24 U/L (15-37) 10/26/17 09:57 ALT 39 U/L (12-78) 10/26/17 09:57 Alkaline Phosphatase 94 U/L (45-117) 10/26/17 09:57 Total Protein 8.3 g/dl (6.4-8.2) H 10/26/17 09:57 Albumin 4.3 g/dl (3.4-5.0) 10/26/17 09:57 CARDIAC ENZYMES Creatine Kinase 55 IU/L (39-308) 10/26/17 09:57 Troponin I < 0.02 ng/ml (0.00-0.05) 10/26/17 09:57 Current Medications Generic Name Dose Route Start Last Admin Trade Name Freq PRN Reason Stop Dose Admin Hydrochlorothiazide 12.5 mg 10/27/17 15:45 10/27/17 17:23 Hctz - PO 12.5 mg DAILY FRANNY Administration Levofloxacin 750 mg in 150 mls @ 150 mls/hr 10/28/17 10:00 Levaquin 750 Mg Premixed Ivpb - IVPB DAILY [facility] Protocol Insulin Aspart 1 vial 10/27/17 16:30 10/27/17 17:31 Novolog Vial Sliding Scale - SQ 4 units ACHS FRANNY Administration Protocol Morphine Sulfate 2 mg 10/27/17 15:34 Morphine Sulfate IVPUSH Q4H PRN PAIN LEVEL 1 - 3 Valsartan 80 mg 10/27/17 15:45 10/27/17 17:22 Diovan - PO 80 mg DAILY FRANNY Administration Home Medications Medication Instructions Recorded Acarbose [Precose -] 50 mg PO TID 10/26/17 Glimepiride 4 mg PO DAILY 10/26/17 Metformin HCl [Metformin HCl ER] 1,000 mg PO BID 10/26/17 Pravastatin Sodium 20 mg PO DAILY 10/26/17 Valsartan/Hydrochlorothiazide 1 each PO DAILY 10/26/17 [Valsartan-Hctz 80-12.5 mg Tab] Lactobacillus Acidophilus [Bacid -] 1 each PO BID #10 capsule 10/27/17 Levofloxacin [Levaquin] 500 mg PO DAILY #5 tablet 10/27/17 Oxycodone HCl 5 mg PO Q4H PRN #20 tablet MDD 4 10/27/17 <Rita Sanchez - Last Filed: 10/27/17 18:22> Physical Exam: SUBJECTIVE: No acute events overnight and pt is to go for OR today with Dr. Arielle Lorenzo. Pt denies any pain currently, f/c, SOB, CP/discomfort, palpitations, nausea/vomiting, abdominal pain, and back pain OBJECTIVE: Vital Signs Period Temp Pulse Resp BP Sys/Quintanilla Pulse Ox Last 24 Hr 97.5 F-99.4 F 66-103 16-20 119-155/64-91 97-99 PHYSICAL EXAM GENERAL: NAD, lying in bed, awake, and alert. Poor dentition, no tonsillar exudates/plaques, no JVD, no lymphadenopathy Elderly male lying in bed with suprapubic catheter in place draining dark urine in no acute distress. Awake, alert, and orientated. HEENT: NC/AT EOMI, SWETHA, poor dentition noted, no tonsillar exudates, no JVd, no lyphadenopathy LUNGS: CTA b/l. No wheezes/rhonchi/rales HEART: RRR. + S1/S2. No murmurs ABDOMEN: Soft, nondistended, suprapubic tenderness with distention of bladder via percussion. Suprapubic catheter in place with site C/D/I. : Erythematous and edematous penile shaft. Unable to retract foreskin, glans penis and urethral meatus not visualized. Small amount of clear discharge. No scrotal swelling. No inguinal lymphadenopathy. EXTREMITIES: No edema. 2+ DP pulses, warm LABS Laboratory Results - last 24 hr 10/26/17 10/27/17 10/27/17 21:25 06:36 07:40 WBC 12.8 H RBC 4.68 Hgb 13.6 Hct 39.3 MCV 84.1 MCH 29.1 MCHC 34.7 RDW 13.2 Plt Count 199 MPV 8.4 Sodium Potassium Chloride Carbon Dioxide Anion Gap BUN Creatinine POC Glucometer 257 234 Random Glucose Calcium 10/27/17 07:40 WBC RBC Hgb Hct MCV MCH MCHC RDW Plt Count MPV Sodium 133 L Potassium 4.8 Chloride 96 L Carbon Dioxide 28 Anion Gap 9 BUN 17 D Creatinine 1.1 POC Glucometer Random Glucose 250 H Calcium 8.9 HOSPITAL COURSE: Date of Admission:10/26/17 Date of Discharge: 10/27/17 Pt was admitted after presenting with urinary retention which had been worsening over the past 2 weeks. Pt's daughter reported initially reported pt having a history of phimosis with most recent episode in March 2017 for which the obstruction was able to be manually relieved. While pt was in the ED he was seen by urology who was unable to manually reduce phimosis at this time. Pt had suprapubic catheter placed for decompression of his bladder. Pt was then initiated on Levaquin 750mg IV qDaily in the perioperative period and unforunately had to undergo a distal urethroplasty with dorsal slit and removal of suprapubic tube. Pt had an 18Fr pacheco placed in the perioperative period and had antiobiotics continued. Pt is currently being discharged with close follow- up with the instructions to continue Levaquin 500mg qDaily PO for the next 5 days, take Bacid 1 tab PO qdaily while on ABX, and followup with Dr. Branch within 7 days of his procedure for assessment and pacheco instructions. Pt understands he will be leaving with pacheco. He also will be given Percocet 5- 325mg PO q6h for pain control until his appointment with Dr. Branch. Minutes to complete discharge: 35 <Lonnie Harrison - Last Filed: 11/03/17 22:27> Discharge Summary - Home Medications Comprehensive Discharge Medication List: Ambulatory Orders Acarbose [Precose -] 50 mg PO TID 10/26/17 Glimepiride 4 mg PO DAILY 10/26/17 Metformin HCl [Metformin HCl ER] 1,000 mg PO BID 10/26/17 Pravastatin Sodium 20 mg PO DAILY 10/26/17 Valsartan/Hydrochlorothiazide [Valsartan-Hctz 80-12.5 mg Tab] 1 each PO DAILY Lactobacillus Acidophilus [Bacid -] 1 each PO BID #10 capsule 10/27/17 Levofloxacin [Levaquin] 500 mg PO DAILY #5 tablet 10/27/17 Oxycodone HCl 5 mg PO Q4H PRN #20 tablet MDD 4 10/27/17 <SrinivasaleoneltitisoniaRudymanuela - Last Filed: 10/27/17 18:22> Reason For Visit: RETENTION OF URINE - Home Medications Comprehensive Discharge Medication List: Ambulatory Orders Acarbose [Precose -] 50 mg PO TID 10/26/17 Glimepiride 4 mg PO DAILY 10/26/17 Metformin HCl [Metformin HCl ER] 1,000 mg PO BID 10/26/17 Pravastatin Sodium 20 mg PO DAILY 10/26/17 Valsartan/Hydrochlorothiazide [Valsartan-Hctz 80-12.5 mg Tab] 1 each PO DAILY Lactobacillus Acidophilus [Bacid -] 1 each PO BID #10 capsule 10/27/17 Levofloxacin [Levaquin] 500 mg PO DAILY #5 tablet 10/27/17 Oxycodone HCl 5 mg PO Q4H PRN #20 tablet MDD 4 10/27/17 <Lonnie Harrison - Last Filed: 11/03/17 22:27> Condition: Stable - Instructions Diet, Activity, Other Instructions: You were hospitalized due to urinary obstruction and your phimosis of your foreskin. Medications: You will be given Levaquin 500mg ONCE by mouth for 5 days You will also be given Bacid to take one tablet every day You will also be given Percocet 5-325mg every 6 hours my mouth --These have all been sent to your pharmacy Follow-up: Please keep the pacheco on an outpatient basis Please see Dr. Branch within 7 days for follow-up on your procedure Please follow-up with your primary medical physician to discuss what has happened during your hospital stay Referrals: Adrian Branch MD [Staff Physician] - Disposition: HOME This patient is new to me today: No Emergency Visit: No Critical Care patient: No - Discharge Referral Referred to [facility] Med P.C[facility] No <Lonnie Harrison - Last Filed: 11/03/17 22:27>
[2017-10-27] MEDS ORDERED: PT OWN MED DRAWER 7, Y5N ONE (19:09)
--- NOTE | 2017-10-27 19:26 | OP ---
DATE OF OPERATION: 10/27/2017 PREOPERATIVE DIAGNOSIS: Phimosis with distal urethral stricture and urinary retention. POSTOPERATIVE DIAGNOSIS: Phimosis with distal urethral stricture and urinary retention. PROCEDURE: Distal urethroplasty, dorsal slit, and removal of suprapubic tube. ATTENDING: Ledy Villar MD ANESTHESIA: General. DESCRIPTION OF OPERATION: The patient has a history of acute urinary retention requiring a suprapubic tube placed in the emergency room 24 hours earlier. 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 The patient has consented for a dorsal slit with possible urethroplasty. The patient is brought in the operating room, placed in supine position on the operating room table. A severe ballooning of the penis is noted. An 18-gauge needle with a 10-mL syringe is used to aspirate all the urine from the penile skin. 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 A dorsal slit is performed, allowing for partial visualization of the penis. Adhesions involving the inner preputial skin to the glans and area of the meatus are noted. Blunt and sharp dissection is performed, and segments of glans with the inner preputial skin and urethra were sent for specimen. At this point, the edges of the dorsal slit are reconstructed with interrupted 3-0 chromic stitches. With the dorsal slit completed, reconstruction of the distal urethra is performed. The urethra is sharply dissected in order to raise a flap and move the urethra anteriorly. The ventral aspect of the glans and urethra are then reconstructed with interrupted 3-0 chromic stitches. Excellent cosmetic and functional results are noted. With this performed, an 18-Kosovan Castellon is placed into the bladder. The catheter is irrigated in order to ensure that it is in the proper position. At this point, the suprapubic tube is removed and sent for pathology. There were no complications noted. The patient tolerated the procedure very well. The patient will require the catheter for at least 1 week and will be followed up as an outpatient. LEDY VILLAR M.D. [id number]
--- NOTE | 2017-10-29 14:29 | PATH ---
Surgical Pathology Report Patient Name: NATASHA KELLY Med. Rec. #: [id number] /Age/Gender: 1945 (Age: 72) / M Account: [id number] Location: [address] [place] [address]/[facility] Taken: 10/27/2017 Received: 10/28/2017 Reported: 10/29/2017 Physicians: Adrian Branch Specimen(s) Received A: TISSUE OF GLANS PENIS B: FOREIGN BODY SUPRA PUBIC TUBE Clinical History Urinary retention Final Diagnosis A. GLANS PENIS, BIOPSY: SQUAMOUS MUCOSA WITH ACUTE AND CHRONIC INFLAMMATION IN THE DERMIS AND EPIDERMIS. B. FOREIGN BODY, SUPRA PUBIC TUBE: TWO PORTIONS OF TUBE. GROSS EXAMINATION ONLY. Electronically Signed Margot Stewart M.D. Gross Description A. Received in formalin labeled "glans penis," is a 1.3 x 0.8 x 0.2 cm portion of parsons soft tissue. The specimen is bisected and entirely submitted in one cassette. B. Received fresh labeled "suprapubic tube," are 2 portions of white tubing measuring 15.0 and 17.0 cm in length. The longer portion displays a 10.5 x 10.3 x 0.1 cm attached portion of padding. No soft tissue is present. No sections are submitted, gross only. 10/28/[address] [facility]2017
[2019-10-27] MEDS ORDERED: VALSARTAN 80 MG TABLET (UD) PO SCH (14:00)
== END 2017-10-27 19:55 | disposition home or self-care (01) ==
LOC: JER 07:30 → JERBED 09:49 → J5S 12:54
PROVIDERS: ADMIT Internal Medicine; ATTEND Internal Medicine
PROC: 0TQD0ZZ Repair Urethra, Open Approach (ICD-10-PCS; principal; 2017-10-26)
PROC: 0T9B00Z Drainage of Bladder with Drainage Device, Open Approach (ICD-10-PCS; 2017-10-26)
DX: N47.1 Phimosis (principal); N47.6 Balanoposthitis; N35.9 Urethral stricture, unspecified; R33.8 Other retention of urine; N34.2 Other urethritis; I10 Essential (primary) hypertension; E78.5 Hyperlipidemia, unspecified; E11.9 Type 2 diabetes mellitus without complications; Z79.84 Long term (current) use of oral hypoglycemic drugs; Z87.891 Personal history of nicotine dependence; E87.1 Hypo-osmolality and hyponatremia; D72.829 Elevated white blood cell count, unspecified
CPT/HCPCS: 36415; 76775-TC; 76856-TC; 80048; 80053; 81003; 81015; 82550; 82962; 84484; 85025; 85027; 85610; 85730; 86850; 86900; 86901; 87086; 88300-TC; 88304-TC; 93005; 93010; 94760; 99285-25; G0378

== ENCOUNTER 2024-08-23 09:07 | Emergency (ER) | payer OTHER ==
[2024-08-23 09:50] VITALS: BP 120/96; PULSE 97; RESP 18; TEMP 97.9; BMI 25.8
[2024-08-23 10:02] LABS: BASO % 0.5 % (0-2.0); EOS % 2.8 % (0-4.5); HEMATOCRIT 33.7 % (35.4-49); HEMOGLOBIN 10.9 GM/dL (11.7-16.9); LYMPH % 10.4 % (8-40); MCH 27.1 pg (25.7-33.7); MCHC 32.3 g/dl (32.0-35.9); MEAN CELL VOLUME 84.1 fl (80-96); MEAN PLT VOLUME 8.5 fl (7.5-11.1); MONO % 7.9 % (3.8-10.2); NEUT % 78.4 % (42.8-82.8); PLATELET COUNT 185 10^3/uL (134-434); RBC 4.01 M/mm3 (4.00-5.60); RDW 16.2 % (11.9-15.9); WHITE BLOOD COUNT 7.8 K/mm3 (4.0-10.0)
[2024-08-23 10:05] LABS: VENOUS O2 SATURATION 80.7 % (70-80); VENOUS PCO2 43.9 mmHg (38-52); VENOUS PH 7.349 (7.310-7.410)
[2024-08-23 10:09] LABS: EPI CELLS 3 /uL (0-25.1); HYALINE CASTS 0 /uL (0-3.1); PH,URINE 6.5 (5.0-8.0); URINE APPEARANCE CLEAR; URINE BACTERIA 4 /uL (0-1359); URINE BILIRUBIN NEGATIVE (NEGATIVE); URINE COLOR YELLOW; URINE GLUCOSE (UA) NEGATIVE (NEGATIVE); URINE KETONE NEGATIVE (NEGATIVE); URINE LEUK ESTERASE TRACE (NEGATIVE); URINE NITRITE NEGATIVE (NEGATIVE); URINE PROTEIN TRACE (NEGATIVE); URINE RBC 20 /uL (0-23.9); URINE UROBILINOGEN 0.2 mg/dL (0.2-1.0); URINE WBC 65 /uL (0-25.8)
[2024-08-23 10:12] LABS: INR 1.12 (0.83-1.09); PROTHROMBIN TIME (PATIENT) 12.3 SEC (9.7-13.0)
[2024-08-23 10:14] LABS: ACTIVATED PTT 33.2 SECONDS (25.2-36.5)
[2024-08-23 10:38] LABS: POTASSIUM 4.4 mmol/L (3.5-5.1)
[2024-08-23 10:39] LABS: CALCIUM 9.1 mg/dL (8.5-10.1)
[2024-08-23 10:40] LABS: ALBUMIN 3.4 g/dl (3.4-5.0); BLOOD UREA NITROGEN 19.9 mg/dL (7-18)
[2024-08-23 10:43] LABS: CREATININE 0.9 mg/dL (0.55-1.3)
[2024-08-23 10:45] LABS: BILIRUBIN,TOTAL 0.4 mg/dL (0.2-1); TOT PROT 7.2 g/dl (6.4-8.2)
[2024-08-23] MEDS ORDERED: DEXTROSE 50%-WATER 25 GM/50 ML DISP.SYRIN ONE (11:35)
[2024-08-23] MEDS: DEXTROSE 50%-WATER - 25 GM/50 ML VIAL IVPUSH ONE (11:42)
== END 2024-08-23 15:22 | disposition home or self-care (01) ==
LOC: JER 09:07
DX: E11.649 Type 2 diabetes mellitus with hypoglycemia without coma (principal); Z79.84 Long term (current) use of oral hypoglycemic drugs; R41.82 Altered mental status, unspecified
CPT/HCPCS: 0241U-QW; 36415; 70450-TC; 71045-TC-FY; 80053; 81003; 82803; 82962; 84484; 85025; 85610; 85730; 87086; 93005; 93010; 99285-25